=== PATIENT | female | born 1995 | race Caucasian/White ===

== ENCOUNTER 2017-08-04 09:06 | Emergency (ER) | payer OTHER ==
[2017-08-04] MEDS: LIDOCAINE 1% (MDV) 10 ML INJ INJ (11:06)
[2017-08-04] MEDS: DIPHTH/TET/ACEL PERTUSS (ADULT) 0.5 ML VIAL IM* (11:07)
== END 2017-08-04 12:00 | disposition home or self-care (01) ==
LOC: FTE 09:06
DX: S71.112A Laceration without foreign body, left thigh, initial encounter (principal); W25.XXXA Contact with sharp glass, initial encounter; Y92.9 Unspecified place or not applicable; Z23 Encounter for immunization
CPT/HCPCS: 12002; 90471; 90715; 99283-25